=== PATIENT | female | born 1985 | race Caucasian/White ===

== ENCOUNTER 2017-07-01 10:35 | Observation (INO) | payer SELFPAY ==
[~2017-07-01] VITALS: Ht 176 cm; Wt 111.1 kg
[2017-07-01 11:00] VITALS: BP 116/77
== END 2017-07-01 13:45 | disposition home or self-care (01) ==
LOC: 4S 10:35
PROVIDERS: ADMIT Obstetrics & Gynecology; ATTEND Obstetrics & Gynecology
DX: O36.8130 Decreased fetal movements, third trimester, not applicable or unspecified (principal); O26.893 Other specified pregnancy related conditions, third trimester; R10.9 Unspecified abdominal pain; M54.9 Dorsalgia, unspecified; Z3A.38 38 weeks gestation of pregnancy
CPT/HCPCS: 59025; 76811; G0378

== ENCOUNTER 2017-07-08 05:40 | Observation (INO) | payer MEDICAID ==
[~2017-07-08] VITALS: Ht 166 cm; Wt 110.2 kg
[2017-07-08 06:18] VITALS: BP 102/61
[2017-07-08] MEDS ORDERED: PREN1TAB80 PO (06:24)
[2017-07-08] MEDS ORDERED: RINGERS SOLUTION,LACTATED 1,000 ML IV SCH (11:19)
[2017-07-08 18:38] LABS: RUBELLA SCREEN (IGG) IMMUNE (IMMUNE)
== END 2017-07-08 15:45 | disposition home or self-care (01) ==
LOC: 4S 05:40
PROVIDERS: ADMIT Obstetrics & Gynecology; ATTEND Obstetrics & Gynecology
DX: O62.9 Abnormality of forces of labor, unspecified (principal); O48.0 Post-term pregnancy; Z3A.41 41 weeks gestation of pregnancy
CPT/HCPCS: 36415; 59025; 76815; 86592; 86762; 86900; 87340; 96360; 96361; G0378; J7120

== ENCOUNTER 2017-07-10 07:49 | Observation (INO) | payer MEDICAID ==
[~2017-07-10] VITALS: Ht 176 cm; Wt 110.2 kg
[~2017-07-10 07:49] MED LIST: PREN1TAB80 PO
[2017-07-10 08:07] VITALS: BP 107/71
[2017-07-10 11:03] LABS: AMPHET/METH SCREEN,URINE NEGATIVE (NEGATIVE); BARBITURATE SCREEN, URINE NEGATIVE (NEGATIVE); BENZODIAZEPINES SCREEN,URINE NEGATIVE (NEGATIVE); CANNABINOID SCREEN,URINE NEGATIVE (NEGATIVE); COCAINE SCREEN,URINE NEGATIVE (NEGATIVE); METHADONE SCREEN, URINE NEGATIVE (NEGATIVE); OPIATE SCREEN,URINE NEGATIVE (NEGATIVE)
[2017-07-10 11:04] LABS: PHENCYCLIDINE SCREEN,URINE NEGATIVE (NEGATIVE)
== END 2017-07-10 11:40 | disposition home or self-care (01) ==
LOC: 4S 07:49
PROVIDERS: ADMIT Obstetrics & Gynecology; ATTEND Obstetrics & Gynecology
DX: O48.0 Post-term pregnancy (principal); O26.893 Other specified pregnancy related conditions, third trimester; R10.2 Pelvic and perineal pain; M54.9 Dorsalgia, unspecified; Z3A.40 40 weeks gestation of pregnancy
CPT/HCPCS: 59025; 80307 ×8; G0378

== ENCOUNTER 2017-07-13 04:11 | Inpatient (IN) | payer MEDICAID ==
[~2017-07-13] VITALS: Ht 166 cm; Wt 110.2 kg
[2017-07-13 04:46] VITALS: BP 114/79
[2017-07-13] MEDS ORDERED: RINGERS SOLUTION,LACTATED 1,000 ML IV SCH ×2 (09:57→15:19)
[2017-07-13] MEDS ORDERED: RINGERS SOLUTION,LACTATED 1,000 ML IV PRN (09:57)
[2017-07-13] MEDS ORDERED: CITRIC ACID/SODIUM CITRATE 30 ML SOLUTION UDCUP PO PRN (10:00)
[2017-07-13] MEDS ORDERED: METOCLOPRAMIDE HCL 5 MG/ML 2 ML VIAL IVP PRN (10:00)
[2017-07-13 10:30] LABS: BASOPHILS # (AUTO) 0.05 K/uL (0.00-0.20); BASOPHILS % (AUTO) 0.5 % (0.0-2.0); EOSINOPHILS # (AUTO) 0.11 K/uL (0.00-0.70); EOSINOPHILS % (AUTO) 1.05 % (1.0-6.0); HEMATOCRIT 39.4 % (36-46); HEMOGLOBIN 13.2 g/dL (12.0-16.0); LYMPHOCYTES # (AUTO) 2.1 K/uL (1.0-4.8); LYMPHOCYTES % (AUTO) 18.9 % (22.0-44.0); MEAN CORPUSCULAR HEMOGLOBIN 29.7 pg (26.0-34.0); MEAN CORPUSCULAR HGB CONC 33.4 G/dL (31.0-37.0); MEAN CORPUSCULAR VOLUME 89 fL (80-100); MONOCYTES # (AUTO) 0.5 K/uL (0.1-1.0); MONOCYTES % (AUTO) 4.9 % (2.0-9.0); NEUTROPHILS # (AUTO) 8.1 K/uL (1.8-7.7); NEUTROPHILS % (AUTO) 74.8 % (40.0-70.0); PLATELET COUNT (AUTO)-OB 240 K/uL (150-450); RED BLOOD CELL COUNT(AUTO) 4.43 MIL/uL (4.00-5.20); RED CELL DISTRIBUTION WIDTH 14.6 % (11.5-14.5)
[2017-07-13] MEDS ORDERED: CeFAZolin 2 GM/DEXTROSE 50 ML IV ONE (14:36)
[2017-07-13] MEDS ORDERED: MORPHINE SULFATE/PF 0.5 MG/ML 10 ML AMP ONE (14:36)
[2017-07-13] MEDS ORDERED: FentaNYL CITRATE-PF 100 MCG/2 ML VIAL ONE (14:36)
[2017-07-13] MEDS ORDERED: DiphenhydrAMINE HCL 50 MG/ML VIAL IM PRN (15:15)
[2017-07-13] MEDS ORDERED: PROMETHAZINE HCL 12.5 MG in SODIUM CHLORIDE 0.9% 50 ML IV PRN (15:15)
[2017-07-13] MEDS ORDERED: ONDANSETRON HCL 4 MG/2 ML VIAL IVP PRN ×2 (15:15→15:30)
[2017-07-13] MEDS ORDERED: MEPERIDINE-PF 25 MG/ML SYRINGE IVP PRN (15:15)
[2017-07-13] MEDS ORDERED: DiphenhydrAMINE HCL 50 MG/ML VIAL IVP PRN ×2 (15:15→15:30)
[2017-07-13] MEDS ORDERED: NALBUPHINE HCL 10 MG/ML VIAL IVP PRN ×3 (15:15→15:30)
[2017-07-13] MEDS ORDERED: DEXAMETHASONE SOD PHOS 4 MG/ML VIAL IVP PRN (15:15)
[2017-07-13] MEDS ORDERED: FentaNYL CITRATE-PF 100 MCG/2 ML VIAL IVP PRN ×4 (15:15→15:30)
[2017-07-13] MEDS ORDERED: OXYTOCIN 30 UNITS/LACT RINGERS 500 ML IV ONE (15:19)
[2017-07-13] MEDS ORDERED: OxyCODONE HCL/ACETAMINOPHEN 5-325 MG TABLET PO PRN (15:30)
[2017-07-13] MEDS ORDERED: NALOXONE HCL 0.4 MG/ML VIAL IVP PRN (15:30)
[2017-07-13] MEDS ORDERED: LANOLIN 7 GM OINTMENT TP PRN (15:30)
[2017-07-13] MEDS ORDERED: OXYGEN THERAPY IH SCH ×5 (20:00)
[2017-07-13] MEDS ORDERED: INFLUENZA VIRUS VACCINE QVS 2017-18 (3YR+)/PF 60 MCG/0.5 ML SYRINGE IM ONE (20:45)
[2017-07-13] MEDS: MAGNESIUM HYDROXIDE SUSPENSION 30 ML UDCUP PO SCH (21:17)
[2017-07-13] MEDS: KETOROLAC TROMETHAMINE 30 MG/ML VIAL IVP SCH (21:57)
[2017-07-14] MEDS ORDERED: ONDANSETRON HCL 4 MG/2 ML VIAL IVP ONE (01:23)
[2017-07-14] MEDS ORDERED: DEXAMETHASONE SOD PHOS 4 MG/ML VIAL IVP ONE (01:23)
[2017-07-14] MEDS ORDERED: KETOROLAC TROMETHAMINE 60 MG/2 ML VIAL IM ONE (01:23)
[2017-07-14] MEDS ORDERED: OXYTOCIN 10 UNITS/ML VIAL IM ONE (01:23)
[2017-07-14] MEDS: KETOROLAC TROMETHAMINE 30 MG/ML VIAL IVP SCH (04:38)
[2017-07-14] MEDS: MAGNESIUM HYDROXIDE SUSPENSION 30 ML UDCUP PO SCH ×2 (08:21→21:57)
[2017-07-14 08:28] LABS: BASOPHILS # (AUTO) 0.05 K/uL (0.00-0.20); BASOPHILS % (AUTO) 0.3 % (0.0-2.0); EOSINOPHILS # (AUTO) 0.01 K/uL (0.00-0.70); EOSINOPHILS % (AUTO) 0.07 % (1.0-6.0); HEMATOCRIT 33.2 % (36-46); HEMOGLOBIN 11.2 g/dL (12.0-16.0); LYMPHOCYTES % (AUTO) 12.5 % (22.0-44.0); MEAN CORPUSCULAR HEMOGLOBIN 29.9 pg (26.0-34.0); MEAN CORPUSCULAR HGB CONC 33.9 G/dL (31.0-37.0); MEAN CORPUSCULAR VOLUME 88 fL (80-100); MONOCYTES # (AUTO) 0.8 K/uL (0.1-1.0); MONOCYTES % (AUTO) 4.9 % (2.0-9.0); NEUTROPHILS # (AUTO) 13.3 K/uL (1.8-7.7); NEUTROPHILS % (AUTO) 82.2 % (40.0-70.0); PLATELET COUNT (AUTO)-OB 210 K/uL (150-450); RED BLOOD CELL COUNT(AUTO) 3.76 MIL/uL (4.00-5.20); RED CELL DISTRIBUTION WIDTH 14.3 % (11.5-14.5)
[2017-07-14] MEDS: IBUPROFEN 800 MG TABLET PO PRN (18:12)
[2017-07-14] MEDS: OxyCODONE HCL/ACETAMINOPHEN 5-325 MG TABLET PO PRN (22:05)
[2017-07-15] MEDS: IBUPROFEN 800 MG TABLET PO PRN ×2 (00:41→07:01)
[2017-07-15] MEDS: OxyCODONE HCL/ACETAMINOPHEN 5-325 MG TABLET PO PRN (07:49)
[2017-07-15] MEDS: MAGNESIUM HYDROXIDE SUSPENSION 30 ML UDCUP PO SCH (08:07)
[2017-07-15] MEDS ORDERED: IBUP-2071 PO ×2 (11:05→11:06)
[2017-07-15] MEDS ORDERED: DSS100 PO (11:08)
[2017-07-15] MEDS ORDERED: FERR-82 PO (11:10)
[2017-07-15] MEDS ORDERED: PERCT PO (11:11)
== END 2017-07-15 11:55 | disposition home or self-care (01) | DRG 540 ==
LOC: OBSVTOIN 04:11 → 4S 04:11
PROVIDERS: ADMIT Obstetrics & Gynecology; ATTEND Obstetrics & Gynecology
PROC: 10D00Z1 Extraction of Products of Conception, Low, Open Approach (ICD-10-PCS; principal; 2017-07-13)
PROC: 3E0234Z Introduction of Serum, Toxoid and Vaccine into Muscle, Percutaneous Approach (ICD-10-PCS; 2017-07-13)
DX: O36.63X0 Maternal care for excessive fetal growth, third trimester, not applicable or unspecified (principal); O69.81X0 Labor and delivery complicated by cord around neck, without compression, not applicable or unspecified; Z37.0 Single live birth; Z3A.41 41 weeks gestation of pregnancy; Z23 Encounter for immunization
CPT/HCPCS: 80307; 86850; 86900; 86901; 87081; J0690; J1100; J1885; J2274; J2405; J2590; J2765; J3010; J7120